=== PATIENT | male | born 1970 | race Hispanic/Latino ===

== ENCOUNTER 2025-01-21 06:27 | Emergency (ER) | payer OTHER ==
[~2025-01-21] VITALS: Ht 162.6 cm; Wt 103.4 kg
--- NOTE | 2025-01-21 07:26 | ERN ---
General Chief Complaint: Neck Pain Stated Complaint: C/O NECK PAIN, PAIN TO LOWER EXTREMITIES Time Seen by MD: 06:15 Source: patient History of Present Illness Initial Comments Patient is a 54-year-old gentleman coming in complaining of neck pain. Per patient he has been evaluated at another place us with the same reason patient has been taking anti-inflammatories and antispasmodics but states his pain is still there. Past Medical History Past Medical History: High Cholesterol, Hypertension, Other Medical History Other: GOUT Past Surgical History: None ROS Dictation CONSTITUTIONAL: No chills, no fever, no weakness, no diaphoresis, no malaise. HEAD/FACE: No signs of trauma. EENT: No eye pain, no blurred vision, no tearing, no double vision, no ear pain, no ear discharge, no nose pain, no nasal congestion, no throat pain, no throat swelling, no mouth pain. RESPIRATORY: No cough, no orthopnea, no SOB, no stridor, no wheezing. CARDIOVASCULAR: No chest pain, no edema, no palpitations, no syncope. GASTROINTESTINAL/ABDOMINAL: No abdominal pain, no constipation, no diarrhea, no nausea, no vomiting. GENITOURINARY: No abnormal discharge, no dysuria, no frequent urination, no hematuria. No complaints of pain in the genitals. MUSCULOSKELETAL: back pain, no gout, no joint pain, no joint swelling, muscle pain, no muscle stiffness, neck pain. INTEGUMENTARY: No change in color, no change in hair/nails, no dryness, no lesion, no lumps, no rash. NEUROLOGICAL/PSYCH: No anxiety, not depressed, no emotional problem, no headache, no numbness, no pre-existing deficit, no history of seizures, no tremors, no weakness. HEMATOLOGIC/LYMPHATIC: Not anemic, no history of blood clots, no apparent bleeding, no bruising, glands not swollen. All Systems Negative, Except as Noted. Physical Exam Physical Exam Dictation VITAL SIGNS: Reviewed. GENERAL APPEARANCE: Alert, oriented x3, no acute distress, obese. HEAD AND FACE: Non-traumatic. EYES: PERRL, pink conjunctivas, eyelid no trauma, anterior chamber clear. EARS: Pinnas intact and no signs of trauma or erythema. Ear canals clear and no discharge. TMs no erythema. NOSE: No discharge, no bleeding. OROPHARYNX: Mouth normal, teeth no caries, tongue pink. Pharynx clear, no erythema. Tonsils no exudates, no abscesses noted. Mucous membrane moist. NECK: Supple, non-tender, no thyromegaly, no masses, no JVD, no bruits. BREAST: Deferred. CHEST: No tenderness, no crepitus, no paradoxical movement, no retractions. LUNGS: Clear, well-ventilated, symmetric, no rales, no wheezing, no rhonchi, no stridor, good breath sounds bilaterally. HEART: Regular rate, regular rhythm, no murmur, no gallops. VASCULAR: No peripheral edema. ABDOMEN: Soft, positive bowel sounds, nondistended, no guarding, nontender, no rebound, no masses no hepatomegaly, no splenomegaly, no Weber's sign, no hernias. RECTAL: Deferred. GENITAL: Deferred. NEUROLOGICAL: Normal speech, gross motor function intact, gross sensory function intact. MUSCULOSKELETAL: Neck nontender, full range of motion, back nontender, full range of motion. EXTREMITIES: Nontender, full range of motion. SKIN: Color pink, dry, no turgor, no rash, no lacerations, no abrasions, no contusions. LYMPHATICS: Deferred. Results Laboratory and Microbiology Labs Reviewed?: Yes EKG/XRAY/US/CT/MRI CT Scan Comment [address] [address] IMAGING REPORT Signed PATIENT: SIRISHA JACQUES MR#: [id number] : 1970 SEX: M AGE: 54 LOCATION: ED ORDER 9 STATUS: REG REPORT#: [id number] SERVICE 8 REASON: neck pain ORDERING PHYSICIAN: EZEKIEL WALTERS MD PROCEDURE: C SPIN WO - CT CERVICAL SPINE W/O CONTRAST EXAM: CT Cervical Spine Without IV contrast. CLINICAL HISTORY: neck pain TECHNIQUE: Axial computed tomography images of the cervical spine without intravenous contrast. Sagittal and coronal reformatted images were generated. COMPARISON: None provided. FINDINGS: ALIGNMENT: Straightening of the cervical spine reflects paraspinal muscle spasm. DEGENERATIVE CHANGES: Cervical spondylosis is evident by anterior osteophytes, uncovertebral joint hypertrophy, and multilevel facet joint osteoarthritis. There is mild multilevel degenerative disc disease, more pronounced at C4-C7. No significant canal stenosis or neural foraminal narrowing is evident. SOFT TISSUES: The prevertebral soft tissues are within normal limits. BONES: No acute fracture or aggressive appearing osseous lesion. IMPRESSION: 1. No acute osseous injury. 2. Cervical spondylosis with multilevel degenerative changes, most pronounced at C4-C7. /[place] DICTATED BY: CELESTE GONZALES Jr., MD DATE: 01/21/251245 ELECTRONICALLY SIGNED BY: CELESTE GONZALES Jr., MD DATE: 01/21/251245 [facility] MDM: Differential diagnosis: Spondylosis of the spine, osteoarthritis, generalized rash, Rationale: Tests considered and ordered secondary to shared decision making include: Previous outside records reviewed: Old ER visits. Risk of complication and/or morbidity or mortality of patient management: None Medications-Per medication reconciliation Need for hospitalization: Patient does not meet criteria for hospitalization. Need for emergency major/minor surgery: No Patient is a 54-year-old gentleman coming in complaining of neck discomfort. Patient has been evaluated in the past. States that the medication they prescribed him in his not working. CT of the neck was performed due to the spine tenderness he presented with. CT disclose spondylosis of the spine. I will advise him to follow up with physician coding specialist as well as PCP. During the ER evaluation and prior to discharge patient stated that he had a noticed a rash in his lower extremities evaluated at no erythema noted mild discomfort and pruritus was present. Medication will be provided for symptomatic relief. I also advised him to follow up with PCP for ongoing evaluation of the rash. ED Course Orders Procedure Category Date Status Time Ct Cervical Spine W/O CT 01/21/25 Resulted Contrast 07:19 Vital Signs Date Time Temp Pulse Resp B/P (MAP) Pulse Ox O2 Delivery O2 Flow Rate FiO2 01/21/25 10:59 72 18 154/78 99 Room Air* 0 21 01/21/25 09:52 69 18 160/84 99 Room Air* 0 21 01/21/25 08:41 71 18 162/90 98 Room Air* 0 21 01/21/25 07:41 98.4 72 18 145/73 98 Room Air* 0 21 01/21/25 06:38 98.4 85 18 145/66 99 Room Air* 0 21 01/21/25 06:30 98.4 89 20 146/87 98 Room Air DX & DISP Disposition: Discharge Departure Impression: Primary Impression: Spondylolysis of cervical spine Additional Impression: Contact dermatitis and eczema Condition: Stable Scripts Hydrocortisone (Cortizone 10) 1 % Gel..gram. 28 GM TP BID for 10 Days, #1 TUBE Prov: EZEKIEL WALTERS MD 01/21/25 Diclofenac Sodium (Voltaren Arthritis Pain) 1 % Gel..gram. 5 GM TP BID for 7 Days, #1 TUBE Prov: EZEKIEL WALTERS MD 01/21/25 Additional Instructions: FOLLOW-UP WITH PRIMARY CARE PROVIDER IN 1 TO 2 DAYS. TAKE MEDICATIONS DIRECTED HERE IN THE EMERGENCY ROOM. OKAY TO CONTINUE HOME MEDICATIONS UNLESS OTHERWISE DISCUSSED DURING YOUR VISIT IN THE EMERGENCY ROOM TODAY. RETURN TO YOUR NEAREST EMERGENCY ROOM IF SYMPTOMS WORSEN OR IF THERE IS NO IMPROVEMENT. CALL 911 IF YOU NEED IMMEDIATE ASSISTANCE. TAKE TYLENOL [id number] NEEDED AND IF NO CONTRAINDICATIONS ARE PRESENT. INCREASE ORAL HYDRATION. A WOU ND CULTURE OR URINE CULTURE WAS ORDERED HERE IN THE EMERGENCY ROOM DEPARTMENT PLEASE FOLLOW-UP WITH PRIMARY CARE PROVIDER AND ADVISE THEM TO GET REPORTS FROM OUR FACILITY. IF YOU HAD ANY JELENA WRAP/SPLINTS THAT WERE APPLIED HERE, PLEASE DO NOT REMOVE THEM UNTIL YOU SEE YOUR PRIMARY CARE OR SPECIALTY. Referrals: Referrals: MARCO ORDOÑEZ MD (PCP) Time of Disposition: 11:59 EZEKIEL WALTERS MD Jan 21, 2025 07:26
[2025-01-21 07:41] VITALS: TEMP 98.4
[2025-01-21 10:59] VITALS: BP 154/78; PULSE 72; RESP 18; O2SAT 99
--- NOTE | 2025-01-21 11:47 | HMCIMG ---
EXAM: CT Cervical Spine Without IV contrast. CLINICAL HISTORY: neck pain TECHNIQUE: Axial computed tomography images of the cervical spine without intravenous contrast. Sagittal and coronal reformatted images were generated. COMPARISON: None provided. FINDINGS: ALIGNMENT: Straightening of the cervical spine reflects paraspinal muscle spasm. DEGENERATIVE CHANGES: Cervical spondylosis is evident by anterior osteophytes, uncovertebral joint hypertrophy, and multilevel facet joint osteoarthritis. There is mild multilevel degenerative disc disease, more pronounced at C4-C7. No significant canal stenosis or neural foraminal narrowing is evident. SOFT TISSUES: The prevertebral soft tissues are within normal limits. BONES: No acute fracture or aggressive appearing osseous lesion. IMPRESSION: 1. No acute osseous injury. 2. Cervical spondylosis with multilevel degenerative changes, most pronounced at C4-C7. /[place]
[2025-01-21] MEDS ORDERED: DICL20GE TP (12:01)
[2025-01-21] MEDS ORDERED: HYDR28GE5 TP (12:01)
== END 2025-01-21 12:50 | disposition home or self-care (01) ==
LOC: EDH 06:27
DX: M43.02 Spondylolysis, cervical region (principal); L25.9 Unspecified contact dermatitis, unspecified cause; E78.00 Pure hypercholesterolemia, unspecified; I10 Essential (primary) hypertension
CPT/HCPCS: 72125; 99285